=== PATIENT | male | born 1995 | race African-American/Black ===

== ENCOUNTER 2019-05-13 14:44 | Outpatient (CLI) | payer OTHER | END 2019-05-13 14:45 | disposition critical access hospital (66) | LOC: EMS 14:44 | PROVIDERS: ATTEND Surgery | DX: S61.512A Laceration without foreign body of left wrist, initial encounter (principal); V47.5XXA Car driver injured in collision with fixed or stationary object in traffic accident, initial encounter; Y92.414 Local residential or business street as the place of occurrence of the external cause | CPT/HCPCS: A0425; A0429 ==

== ENCOUNTER 2019-05-13 14:57 | Emergency (ER) | payer OTHER ==
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
[2019-05-13 16:34] VITALS: BP 135/68
== END 2019-05-13 16:34 | disposition home or self-care (01) ==
LOC: ED 14:57
DX: S80.212A Abrasion, left knee, initial encounter (principal); S80.211A Abrasion, right knee, initial encounter; S00.81XA Abrasion of other part of head, initial encounter; S60.512A Abrasion of left hand, initial encounter; S60.812A Abrasion of left wrist, initial encounter; V47.5XXA Car driver injured in collision with fixed or stationary object in traffic accident, initial encounter; Y92.410 Unspecified street and highway as the place of occurrence of the external cause
CPT/HCPCS: 70450; 99283; 99284